=== PATIENT | male | born 1970 | race African-American/Black ===

== ENCOUNTER 2022-07-25 07:22 | Emergency (ER) | payer OTHER ==
[~2022-07-25] VITALS: Ht 180.3 cm; Wt 76.8 kg
[2022-07-25 07:30] VITALS: BP 125/80
[2022-07-25] MEDS ORDERED: KETOROLAC TROMETH 60MG/2ML VIAL IM ONE (08:15)
[2022-07-25] MEDS ORDERED: HYDROcodone-ACET 10/325MG TAB PO ONE (09:00)
[2022-07-25] MEDS ORDERED: HYDR-4798 PO (10:48)
[2022-07-25] MEDS ORDERED: IBUP800T26 PO (10:48)
== END 2022-07-25 10:59 | disposition home or self-care (01) ==
LOC: ER 07:22
DX: M19.011 Primary osteoarthritis, right shoulder (principal); Z88.0 Allergy status to penicillin
CPT/HCPCS: 73030; 99283; J1885